=== PATIENT | female | born 1985 | race Hispanic/Latino ===

== ENCOUNTER 2024-05-19 06:00 | Inpatient (IN) | payer BC ==
[2024-05-19] MEDS ORDERED: Lactated Ringer's 1,000 ML IV SCH (07:20)
[2024-05-19] MEDS ORDERED: HYDROcodone/Acetaminophen 5/325 mg Tablet PO PRN (07:20)
[2024-05-19] MEDS ORDERED: Methylergonovine 0.2 MG/ML VIAL IM PRN (07:20)
[2024-05-19] MEDS ORDERED: fentaNYL 50 mcg/mL 1 mL Vial SLOW IVP PRN (07:20)
[2024-05-19] MEDS ORDERED: Oxytocin 30 units/NS 500 ML 500 ML IV SCH ×2 (07:20)
[2024-05-19] MEDS ORDERED: Ondansetron PF 4 MG/2 ML Vial IVP PRN ×2 (07:20→10:17)
[2024-05-19] MEDS ORDERED: Diphenoxylate HCl/Atropine Tablet PO PRN (07:20)
[2024-05-19] MEDS ORDERED: hydrALAZINE 20 MG/ML VIAL SLOW IVP PRN (07:20)
[2024-05-19] MEDS ORDERED: Lidocaine 1% (PF) 30 ML VIAL SC PRN (07:20)
[2024-05-19] MEDS ORDERED: Acetaminophen 500 MG TAB PO PRN (07:20)
[2024-05-19] MEDS ORDERED: Promethazine HCl 25 MG/ML VIAL IM PRN ×2 (07:20→10:17)
[2024-05-19] MEDS ORDERED: Carboprost 250 MCG/ML AMP IM PRN (07:20)
[2024-05-19] MEDS ORDERED: Misoprostol 200 MCG TAB PR PRN (07:20)
[2024-05-19 07:21] VITALS: BMI 35.2
[2024-05-19 07:33] LABS: Hematocrit 31.5 % (34.9-44.5); Hemoglobin 10.1 g/dL (12.0-15.5); Mean Corpuscular HGB CONC 32.1 g/dL (32.0-36.0); Mean Corpuscular Hemoglobin 26.6 pg (27.0-33.0); Mean Corpuscular Volume 83.1 fL (81.6-98.3); Mean Platelet Volume 10.4 fL (7.4-10.4); Platelet Count 310 10x3/uL (150-450); RBC Distribution Width 13.2 % (11.5-14.5); Red Blood Cell (RBC) Count 3.79 10x6/uL (3.90-5.03); White Blood Cell (WBC) Count 7.41 10x3/uL (3.5-10.5)
[2024-05-19 08:05] LABS: Syphilis Antibody Nonreactive (Nonreactive); Syphilis Antibody Index 0.04 S/CO (<1.00 Non-Reactive)
[2024-05-19 08:07] LABS: HBsAg Index 0.17 S/CO (0-0.99); Hep B Surf Ag - L&D Non-Reactive S/CO (NonReactive)
[2024-05-19] MEDS: Oxytocin 30 units/NS 500 ML 500 ML ONE (09:33)
[2024-05-19] MEDS ORDERED: Acetaminophen 325 MG TAB PO PRN (10:17)
[2024-05-19] MEDS ORDERED: Moisturizing Cream (Eucerin) 113 GM JAR TOP PRN (10:17)
[2024-05-19] MEDS ORDERED: Naloxone HCl 0.4 mg/ml Vial IVP PRN ×2 (10:17)
[2024-05-19] MEDS ORDERED: diphenhydrAMINE 50 MG/ML VIAL IVP PRN (10:17)
[2024-05-19] MEDS ORDERED: ePHEDrine Sulfate 50 MG/10 ML VIAL SLOW IVP PRN (10:17)
[2024-05-19] MEDS ORDERED: Lactated Ringer's 500 ML IV PRN (10:17)
[2024-05-19] MEDS ORDERED: Communication Order-Pharmacy FS SCH (10:30)
[2024-05-19] MEDS: fentaNYL/Ropivacaine Epidural 100 ML ONE (10:34)
[2024-05-19] MEDS: fentaNYL 2 mcg/Ropivacaine 0.2% Epidural 100 ML CADD EPIDURAL SCH (20:37)
[2024-05-19 23:12] LABS: Analyzer IN Cardio CS NICU; RapidComm Collect By RN; pH (Cord, venous) 7.239 (7.250-7.350)
[2024-05-19 23:14] LABS: Analyzer IN Cardio CS NICU; RapidComm Collect By RN
[2024-05-19] MEDS: Ampicillin 2 GM in Sodium Chloride 0.9% 100 ML IVPB SCH (23:55)
[2024-05-20] MEDS: Gentamicin 300 MG, Admixture Fee 1 EACH in Sodium Chloride 0.9% 100 ML IVPB SCH (00:44)
[2024-05-20] MEDS: Ibuprofen 800 MG TAB PO PRN (00:46)
[2024-05-20] MEDS ORDERED: hydrALAZINE 20 MG/ML VIAL SLOW IVP PRN (00:55)
[2024-05-20] MEDS ORDERED: Milk Of Magnesia 30 ML UDCUP PO PRN (00:55)
[2024-05-20] MEDS ORDERED: Lanolin Ointment 7 GM TUBE TOP PRN (00:55)
[2024-05-20] MEDS ORDERED: Preparation H Ointment 28 GM TUBE PR PRN (00:55)
[2024-05-20] MEDS ORDERED: Bisacodyl 10 MG SUPP PR PRN (00:55)
[2024-05-20] MEDS ORDERED: Promethazine HCl 25 MG/ML VIAL IM PRN (00:55)
[2024-05-20] MEDS ORDERED: Ondansetron PF 4 MG/2 ML Vial IVP PRN (00:55)
[2024-05-20] MEDS ORDERED: diphenhydrAMINE 25 MG CAP PO PRN (00:55)
[2024-05-20] MEDS ORDERED: Oxytocin 30 units/NS 500 ML 500 ML IV SCH (01:00)
[2024-05-20] MEDS: Acetaminophen 500 MG TAB PO SCH (02:05)
[2024-05-20] MEDS: traMADol HCl 50 MG TAB PO PRN (04:11)
[2024-05-20] MEDS: Benzocaine-Menthol 82.5 ML CAN TOP PRN (04:11)
[2024-05-20] MEDS: Ferrous Sulfate 325 MG TAB PO SCH (08:00)
[2024-05-20] MEDS: Docusate 100 MG CAP PO SCH (09:33)
[2024-05-20] MEDS: Ibuprofen 800 MG TAB PO SCH (09:33)
[2024-05-20] MEDS: Prenatal Vitamin 1 TAB PO SCH (09:33)
[2024-05-20] MEDS ORDERED: Bupivacaine 0.25% HCL 30 ML VIAL ONE (10:00)
[2024-05-20] MEDS: Boostrix 0.5 ML (Tdap) VIAL (>/=7 yrs of age) IM ONE (14:40)
[2024-05-21 08:22] VITALS: BP 115/55; TEMP 97.7
== END 2024-05-21 11:15 | disposition home or self-care (01) | DRG 807 ==
LOC: CSHLD 06:11 → CSHPP 05-20 01:10
PROVIDERS: ADMIT Student in an Organized Health Care Education/Training Program; ATTEND Student in an Organized Health Care Education/Training Program
PROC: 10E0XZZ Delivery of Products of Conception, External Approach (ICD-10-PCS; principal; 2024-05-19)
PROC: 0HQ9XZZ Repair Perineum Skin, External Approach (ICD-10-PCS; 2024-05-19)
PROC: 10907ZC Drainage of Amniotic Fluid, Therapeutic from Products of Conception, Via Natural or Artificial Opening (ICD-10-PCS; 2024-05-19)
PROC: 10H073Z Insertion of Monitoring Electrode into Products of Conception, Via Natural or Artificial Opening (ICD-10-PCS; 2024-05-19)
DX: O70.0 First degree perineal laceration during delivery (principal); Z37.0 Single live birth; Z3A.39 39 weeks gestation of pregnancy
CPT/HCPCS: 51702; 82805; 85027; 86780; 86850; 86900; 86901; 87340; J0290; J0665; J1580; J2590